=== PATIENT | female | born 1965 | race Caucasian/White ===

== ENCOUNTER 2017-11-13 07:57 | Inpatient (IN) | payer MEDICAID, OTHER ==
[~2017-11-13] VITALS: Ht 160 cm; Wt 60.5 kg
[2017-11-13] MEDS ORDERED: RINGERS SOLUTION,LACTATED 1,000 ML IV ONE ×4 (08:02→13:06)
[2017-11-13] MEDS ORDERED: CeFAZolin 2 GM/DEXTROSE 50 ML IV ONE ×2 (08:03→08:30)
[2017-11-13] MEDS ORDERED: LOSA25TA21 PO (08:27)
[2017-11-13] MEDS ORDERED: ACETAMINOPHEN 1000 MG/ISO-OSM 100 ML IV ONE ×3 (08:46→12:21)
[2017-11-13] MEDS ORDERED: FAMOTIDINE 10 MG/ML 2 ML VIAL IVP ONE (09:45)
[2017-11-13] MEDS ORDERED: DiphenhydrAMINE HCL 50 MG/ML VIAL IVP ONE (09:45)
[2017-11-13] MEDS ORDERED: BENZOCAINE/MENTHOL LOZENGE [8 LOZENGES/PACKET] PO PRN (09:45)
[2017-11-13] MEDS ORDERED: DEXAMETHASONE SOD PHOS 4 MG/ML VIAL IVP PRN (09:45)
[2017-11-13] MEDS ORDERED: DiphenhydrAMINE HCL 50 MG/ML VIAL IVP PRN (09:45)
[2017-11-13] MEDS ORDERED: MAG HYDROX/AL HYDROX/SIMETH 30 ML SUSP UDCUP PO PRN (09:45)
[2017-11-13] MEDS ORDERED: ZOLPIDEM TARTRATE 10 MG TABLET PO PRN (09:45)
[2017-11-13] MEDS ORDERED: FentaNYL CITRATE-PF 100 MCG/2 ML VIAL IVP PRN (11:00)
[2017-11-13] MEDS ORDERED: HYDROmorphone 2 MG/ML SYRINGE IVP PRN (11:00)
[2017-11-13] MEDS ORDERED: MEPERIDINE-PF 25 MG/ML SYRINGE IVP PRN (11:00)
[2017-11-13] MEDS: CYCLOBENZAPRINE HCL 10 MG TABLET PO SCH ×2 (11:00→21:25)
[2017-11-13] MEDS ORDERED: DIAZEPAM 5 MG TABLET PO PRN (11:00)
[2017-11-13] MEDS ORDERED: HYDROmorphone 2 MG/ML SYRINGE ONE (12:18)
[2017-11-13] MEDS: OXYGEN THERAPY IH SCH ×2 (12:20→20:00)
[2017-11-13] MEDS: ACETAMINOPHEN 1000 MG/ISO-OSM 100 ML IV SCH ×2 (12:26→18:20)
[2017-11-13 15:46] VITALS: BP 102/64
[2017-11-13] MEDS ORDERED: SODIUM CHLORIDE 0.9% 250 ML IV ONE (17:12)
[2017-11-13 19:43] VITALS: BP 94/57
[2017-11-13] MEDS: HYDROmorphone 2 MG/ML SYRINGE IVP PRN (21:25)
[2017-11-13] MEDS: DOCUSATE SODIUM 100 MG CAPSULE PO SCH (21:25)
[2017-11-13] MEDS ORDERED: ROCURONIUM BROMIDE 10 MG/ML 5 ML VIAL IVP ONE (22:47)
[2017-11-13] MEDS ORDERED: NEOSTIGMINE METHYLSULFATE 1 MG/ML 10 ML VIAL IVP ONE (22:47)
[2017-11-13] MEDS ORDERED: SUCCINYLCHOLINE CHLORIDE 20 MG/ML 10 ML VIAL IVP ONE (22:47)
[2017-11-13] MEDS ORDERED: DEXAMETHASONE SOD PHOS 4 MG/ML VIAL IVP ONE (22:47)
[2017-11-13] MEDS ORDERED: METOCLOPRAMIDE HCL 5 MG/ML 2 ML VIAL IVP ONE (22:47)
[2017-11-13] MEDS ORDERED: PROPOFOL 1% 20 ML VIAL IVP ONE (22:47)
[2017-11-13] MEDS ORDERED: GLYCOPYRROLATE 0.2 MG/ML VIAL IM ONE (22:47)
[2017-11-13] MEDS ORDERED: ONDANSETRON HCL 4 MG/2 ML VIAL IVP ONE (22:47)
[2017-11-13] MEDS ORDERED: LIDOCAINE HCL/PF 2% 5 ML VIAL IM ONE (22:47)
[2017-11-14 00:15] VITALS: BP 108/63
[2017-11-14] MEDS: ACETAMINOPHEN 1000 MG/ISO-OSM 100 ML IV SCH ×2 (03:41→10:25)
[2017-11-14 04:42] VITALS: BP 112/69
[2017-11-14] MEDS ORDERED: FentaNYL CITRATE-PF 100 MCG/2 ML VIAL IVP ONE (05:56)
[2017-11-14] MEDS ORDERED: KETAMINE HCL 50 MG/ML 10 ML VIAL IVP ONE (05:56)
[2017-11-14] MEDS ORDERED: MIDAZOLAM HCL 2 MG/2 ML VIAL IVP ONE (05:56)
[2017-11-14] MEDS: DOCUSATE SODIUM 100 MG CAPSULE PO SCH (07:52)
[2017-11-14] MEDS: CYCLOBENZAPRINE HCL 10 MG TABLET PO SCH (07:52)
[2017-11-14] MEDS: HYDROmorphone 2 MG/ML SYRINGE IVP PRN (07:56)
[2017-11-14] MEDS: OXYGEN THERAPY IH SCH (07:59)
[2017-11-14 08:00] VITALS: BP 128/81
[2017-11-14] MEDS ORDERED: OxyCODONE HCL/ACETAMINOPHEN 5-325 MG TABLET PO PRN (11:00)
[2017-11-14 12:01] VITALS: BP 128/79
== END 2017-11-14 14:25 | disposition home or self-care (01) | DRG 473 ==
LOC: 4E 07:57
PROVIDERS: ADMIT Orthopaedic Surgery Orthopaedic Surgery of the Spine; ATTEND Orthopaedic Surgery Orthopaedic Surgery of the Spine
PROC: 0RT30ZZ Resection of Cervical Vertebral Disc, Open Approach (ICD-10-PCS; 2017-11-13)
PROC: 0RG10A0 Fusion of Cervical Vertebral Joint with Interbody Fusion Device, Anterior Approach, Anterior Column, Open Approach (ICD-10-PCS; principal; 2017-11-13 10:00)
DX: M48.02 Spinal stenosis, cervical region (principal); Z91.040 Latex allergy status
CPT/HCPCS: 87081; 93005; 97161; 97165; C1713; J0131; J0330; J0690; J1100; J1170; J1200; J2250; J2405; J2704; J2765; J3010; J3490; J7050; J7120